=== PATIENT | female | born 1995 | race Caucasian/White ===

== ENCOUNTER 2024-03-26 15:20 | Outpatient (CLI) | payer BC, SELFPAY ==
--- NOTE | ~2024-03-26 | US_ITS ---
EXAMINATION: US pelvic complete w TV DATE: 03/26/2024 15:59 INDICATION: Missing intrauterine device strings. TECHNIQUE: Multiple transabdominal and transvaginal sonographic images of the pelvis were obtained. COMPARISON: None. FINDINGS: TRANSABDOMINAL ULTRASOUND: The uterus measures 7.0 x 4.0 x 2.4 cm. There is no free fluid in the pelvis. TRANSVAGINAL ULTRASOUND: The endometrial complex measures 4 mm in thickness. There is an intrauterine device in expected posit ion. The right ovary measures 1.9 x 2.7 x 1.9 cm. The left ovary measures 2.6 x 2.0 x 1.9 cm. There i s normal vascular flow in the ovaries. IMPRESSION: 1. Intrauterine device in expected position. Reviewed, dictated and finalized at location A.
== END 2024-03-26 15:21 | disposition home or self-care (01) ==
LOC: GOSHIMG 15:21
PROVIDERS: PCP Obstetrics & Gynecology; Visit Provider Obstetrics & Gynecology
DX: Z30.431 Encounter for routine checking of intrauterine contraceptive device (principal)
CPT/HCPCS: 76830; 76856

== ENCOUNTER 2024-10-15 15:15 | Outpatient (CLI) | payer BC, SELFPAY ==
--- NOTE | ~2024-10-15 | US_ITS ---
EXAMINATION: US pelvic complete w TV INDICATION: Pelvic pain. IUD check. Comparison:No prior studies for comparison. TECHNIQUE: Multiple transabdominal and endovaginal sonographic images of the pelvis performed. FINDINGS: The uterus measures 7.1 x 4.7 x 2.8 cm. There is an IUD in the endometrium. The endometrial complex measures 2 mm. The right ovary measures 1.9 x 2.1 x 3.1 cm and the left ovary measures 3 x 3.1 x 3.5 cm. There is a left ovarian cyst measuring 1.8 cm. There are small follicles in each ovary. Normal doppler signal in both ovaries. There is free fluid in the pelvis. There are no abnormal masses seen on either side. IMPRESSION: 1. IUD in expected position within the endometrium. 2: Simple cyst of the left ovary measuring 1.8 cm. Reviewed, dictated and finalized at location A.
== END 2024-10-15 15:16 | disposition home or self-care (01) ==
LOC: GOSHIMG 15:15
PROVIDERS: PCP Obstetrics & Gynecology; Visit Provider Obstetrics & Gynecology
DX: R10.2 Pelvic and perineal pain (principal); Z30.431 Encounter for routine checking of intrauterine contraceptive device; N83.202 Unspecified ovarian cyst, left side
CPT/HCPCS: 76830; 76856